=== PATIENT | male | born 1965 | race Caucasian/White ===

== ENCOUNTER 2023-01-29 11:13 | Emergency (ER) | payer MEDICARE, SELFPAY ==
[2023-01-29 11:14] VITALS: BP 120/90; PULSE 86; RESP 16; TEMP 36.7; O2SAT 100; BMI 28.2
--- NOTE | 2023-01-29 11:26 | [facility].EDGENADL ---
Discharge Plan Disposition Patient Disposition: Home, Self-Care Condition: Fair Prescriptions Prescriptions: New ciprofloxacin-dexamethasone 0.3-0.1 % drops,suspension 4 drp Ear-Left BID 7 Days Qty: 7.5 0RF naproxen [Naprosyn] 500 mg tablet 500 mg PO BID PRN (Reason: pain) Qty: 20 0RF Referrals Follow up/Referrals: Provider,Referral, MD [Primary Care Provider] - See instructions Clinical Impressions Clinical Impression: Headache, Acute actinic otitis externa of left ear Instructions Patient Instructions: DI for Otitis Externa, DI for Headache Discharge ED Provider: Samuel Bazan Adult HPI General Chief complaint: Headache Stated complaint: LT side facial inflammation, pain in head Time Seen by Provider: 01/29/23 11:32 Mode of Arrival: Ambulatory Source of Information: Patient Limitations: No Limitations Description of Symptoms (Recalled from ER Triage Doc. by RN): 57 yo M presents to ED with c/o bilateral ear pain and swelling. pt states that his ear canals feel like they are swollen shut. pt reports headache as well. pt reports symptoms ongoing for 3 weeks. left ear pain worse than right. History of Present Illness HPI narrative: This is a 57-year-old white male who presents with bilateral ear pain and swelling for the past 3 weeks. Patient also complaining of intermittent headache for 3 weeks patient says the pain the left is much greater than the right. No nasal congestion coryza sore throat cough or shortness of breath. Patient denies any fevers or chills. Related Data Previous Rx's Medication Instructions Recorded ciprofloxacin 0.3 %-dexamethasone 4 drp Ear-Left BID 7 days #7.5 mL 01/29/23 0.1 % ear drops,suspension naproxen 500 mg tablet (Naprosyn) 500 mg PO BID PRN pain #20 tabs 01/29/23 Allergies Allergy/AdvReac Type Severity Reaction Status Date / Time No Known Allergies Allergy Verified 01/29/23 11:29 [facility] Disclaimer: The information contained in this section may have been updated after the patient was seen, as this information can be updated by other users. Social History Smoking Status: Never smoker alcohol intake: former current occupational status: employed Travel in the last 8 weeks: None ROS Obtained: Yes All systems reviewed & no additional complaints except as documented Skin no rash or lesions HEENT see HPI Pulmonary no cough or shortness of breath Cardiovascular no chest pain pressure heaviness GI no abdominal pain nausea or vomiting no dysuria pyuria hematuria Musculoskeletal no neck or back pain Endocrine no polydipsia polyuria or polyphasia Psych no SI or HI The rest of the systems were reviewed and found to be negative Physical Exam Narrative Physical exam: Skin: Warm and dry HEENT: Normocephalic atraumatic extract muscles are intact pupils are equal and reactive to light examination of the left ear reveals tenderness upon tugging of the earlobe. The external canal is edematous I cannot visualize the tympanic membrane. The right ear is within normal limits oropharynx within normal limits Neck: Supple nontender Lungs: Clear to auscultation Heart: Regular rate and rhythm Abdomen: NABS soft nontender Extremities: No clubbing cyanosis or edema Neurologic: No unilateral weakness or numbness Lymphatic: No cervical or inguinal adenopathy Musculoskeletal: No tenderness of the dorsal or lumbar spine Psych: No SI or HI General General appearance: alert Respiratory Respiratory exam: Present normal lung sounds bilaterally Cardiovascular Cardiovascular exam: Present regular rate Neurological Exam Neurological exam: Present alert Medical Decision Making Domo Inquiry Pt receiving controlled substance: No Vital Signs: 01/29/23 11:14 Temperature 98.1 F Temperature Source Oral Pulse Rate [Left] 86 Respiratory Rate 16 Blood Pressure [Right Arm] 120/90 Blood Pressure Mean [Right Arm] 100 02 Sat by Pulse Oximetry 100
[2023-01-29 11:41] VITALS: BP 120/90; PULSE 86; RESP 16; TEMP 36.7
== END 2023-01-29 11:44 | disposition home or self-care (01) ==
PROVIDERS: Emergency Provider Emergency Medicine
DX: H60.512 Acute actinic otitis externa, left ear (principal); R51.9 Headache, unspecified
CPT/HCPCS: 96372; 99283; 99284